=== PATIENT | male | born 1980 | race Caucasian/White ===

== ENCOUNTER 2023-11-06 22:07 | Day surgery (SDC) | payer OTHER, SELFPAY ==
[2023-11-06] VITALS (7 sets, daily range): BP systolic 112–155; BP diastolic 75–106; BMI 47.5; BMI 47.0
[2023-11-06 17:19] LABS: % Basophils 0.6 % (0-2); % Eosinophils 2.3 % (0-6); % Immature Granulocytes 0.3 % (0-0.5); % Lymphocytes 21.7 % (20.5-51.1); % Monocytes 6.6 % (1.7-9.3); % Neutrophils 68.5 % (42.2-75.2); Absolute Basophils 0.1 10^3/uL (0-0.2); Absolute Eosinophils 0.2 10^3/uL (0-0.7); Absolute Lymphocytes 1.9 10^3/uL (1.2-3.4); Absolute Monocytes 0.6 10^3/uL (0.1-0.6); Absolute Neutrophils 5.9 10^3/uL (1.4-6.5); Hematocrit 50.4 % (39.0-52.0); Hemoglobin 17.7 g/dL (13.0-18.0); Mean Corp Hgb Conc. 35.1 g/dL (33.0-37.0); Mean Corpuscular Hgb 30.6 pg (27.0-31.0); Mean Corpuscular Volume 87.2 fL (80.0-94.0); Mean Platelet Volume 9.6 fL (7.4-10.4); Nucleated Red Blood Cells % 0 % (-); Platelet Count 155 10^3/uL (130-400); Red Blood Cell Count 5.78 10^6/uL (4.70-6.10); White Blood Cell Count 8.7 10^3/uL (4.8-10.8)
[2023-11-06 17:31] LABS: ALT (SGPT) 33 U/L (0-50); AST (SGOT) 26 U/L (17-59); Albumin 4.6 g/dl (3.5-5.0); Alkaline Phosphatase 73 U/L (38-126); Blood Urea Nitrogen 26 mg/dl (9-20); Calcium 10.1 mg/dl (8.4-10.2); Carbon Dioxide 14 mmol/L (22-30); Chloride 113 mmol/L (98-107); Estimated Creatinine Clearance 94 ml/min; Glucose 103 mg/dl (70-99); Potassium 4.5 mmol/L (3.5-5.1); Sodium 139 mmol/L (135-145); Total Bilirubin 0.9 mg/dl (0.2-1.3); Total Protein 7.5 g/dl (6.3-8.2); eGFR 54.83
[2023-11-06 17:40] LABS: Troponin I < 0.012 ng/ml
--- NOTE | 2023-11-06 18:00 | EDRN ---
no change in chief complaint. seated with spouse in waiting arena.
--- NOTE | 2023-11-06 18:31 | ED.GENMED ---
History of Present Illness
General
Chief Complaint: Chest Pain
Time Seen by Provider: 11/06/23 18:31
History of Present Illness
History of Present Illness:
HPI: The patient presents with chest pain that started around 3:30 PM. This is described as a pressure. When he was 39 years old he had a stroke and later that month had a heart attack and has stents in the LAD according to the mother. 2 years
ago he had a cerebral aneurysm managed operatively. Nitroglycerin today which made his pain go from an 8 to a 3 out of 10. He has been under a lot of stress recently over the last couple of weeks related to the of his father. He is known to
Dr. Todd. He is pretty certain he had an unremarkable stress test a few months ago.
EXAM:
GENERAL: Well appearing in no distress
HEENT: Moist oral mucosa
CARDIOVASCULAR: No murmurs, normal heart rate, regular rhythm, No chest wall tenderness
PULMONARY: No respiratory distress, breath sounds are clear and equal
ABDOMEN: Soft with no peritoneal signs, no tenderness
NEUROLOGIC: Excellent strength all extremities, no coordination deficits
PSYCHIATRIC: Appropriate mental status, normal insight and judgement
EXTREMITIES: Nontender, no edema, moves all extremities equally
SKIN: No rash, no lesions
TIME OF INITIAL ENCOUNTER: 7 PM
NUMBER AND COMPLEXITY OF PROBLEMS ADDRESSED AT THE ENCOUNTER
� Chronic conditions affecting care: CAD, high blood pressure, hyperlipidemia, cerebral aneurysm, CKD
� Acute Exacerbation and/or Progression of Chronic Illness: This is an acute problem
� Differential Diagnosis includes: ACS, noncardiac chest pain such as anxiety, musculoskeletal chest wall pain/costochondritis pneumonia unlikely
AMOUNT AND/OR COMPLEXITY OF DATA TO BE REVIEWED AND ANALYZED
� I performed an independent evaluation of and my interpretation is:
EKG: Sinus 75, normal axis, nonspecific ST abnormality, no significant change from 03/11/2023
CT:
X-rays: I personally viewed chest x-ray and see no acute abnormality
Laboratory Studies: CBC normal, BUN 26, creatinine 1.6 (was 2.0 in February 2023), bicarb 14, troponin less than 0.012, repeat troponin 0.013
Other:
� Review of other/old records: On 03/21/2023 the patient had a nuclear stress test that showed no evidence of ischemia
� Clinical information was obtained by an independent historian: I spoke to mother at bedside
� Prescriptions/Medications Considered but not given:
� Further testing considered but not performed:
RISK OF COMPLICATIONS AND/OR MORBIDITY OR MORTALITY OF PATIENT MANAGEMENT
� Social determinants of health affecting care: Lives at home
� Discussion with other providers: Discussed case with Dr. Foster who recommends patient would benefit from cath. Hospitalist, Dr. Rojas for admission at 8:47 PM
� Escalation of care including admission/observation vs risk of discharge considered: The patient did have chest discomfort in the setting of known coronary artery disease. Cardiology prefers patient to stay in the hospital
medicine service and they will see in consultation. The patient did have aspirin earlier in the day. He currently appears very comfortable.
Phy Exam
Physical Exam
Physical Exam:
See HPI
Scores
Heart Score for Chest Pain Patients
STEMI patient?: Not applicable
Course
Orders/Labs/Results
Orders:
Orders
11/06/23 16:48
Electrocardiogram (*1) Urgent
Reason for Study: Chest Pain
EKG- Treatment ONCE
11/06/23 16:49
CXR2 [CR Chest - 2 Views ] Urgent
Comment:
Reason For Exam: chest pain
11/06/23 17:04
Complete Blood Count/With Diff Urgent
Comprehensive Metabolic Panel Urgent
Troponin I Urgent
11/06/23 18:35
0.9% Sodium Chloride 1000 ml [Nss] 1,000 ml IV BOLUS
11/06/23 19:07
Nitroglycerin Sublingual [Nitrostat (Sublingual)] 0.4 mg SL NOW STA
11/06/23 19:51
Troponin I Urgent
11/06/23 19:58
Electrocardiogram (*1) Urgent
Reason for Study: Chest Pain
EKG- Treatment ONCE
Abnormal Lab Results
11/06/23
17:04
Chloride 113 H mmol/L
(98-107)
Carbon Dioxide 14 L* mmol/L
(22-30)
BUN 26 H mg/dl
(9-20)
Creatinine 1.6 H mg/dL
(0.7-1.3)
Glucose 103 H mg/dl
(70-99)
11/06/23 17:04
11/06/23 17:04
Vital Signs
Initial and Last Documented VS:
Initial Vital Signs
Temp Pulse Resp BP Pulse Ox
98 F 91 16 155/106 99
11/06/23 16:51 11/06/23 16:51 11/06/23 16:51 11/06/23 16:51 11/06/23 16:51
Last Documented Vital Signs
Temp Pulse Resp BP Pulse Ox
98 F 70 24 112/77 95
11/06/23 16:51 11/06/23 20:00 11/06/23 20:00 11/06/23 20:00 11/06/23 20:00
*Critical Care Note
Total Time (30-74mins, 75-104mins- exclusive of procedures): Not Applicable
ED Attending Note
-
Portions of this chart may have been created with voice recognition software.� Occasional wrong word or��sound alike� substitutions may have occurred due to the inherent limitations of voice recognition software.
Discharge Plan
Departure
Patient Disposition: Admit
Date of Disposition: 11/06/23
Time of Disposition: 20:47
Presentation/result/management discussed w/ accepting MD/DO: Hospitalist
Discharge Problem:
Chest pain
Referrals:
James Teran Jr., MD [Family Provider] -
Interventions
Interventions:
*Risk Screen - Suicide Last Done: 11/06/23 16:51
*Neglect/Abuse Screening Last Done: 11/06/23 16:51
ED- Fall Risk Assessment Last Done: 11/06/23 16:51
ED- Cardiac Assessment Last Done: 11/06/23 19:31
Discharge Date and Time
Print Language: TELUGU
[2023-11-06] MEDS: NSS 1000 IV (19:22)
[2023-11-06] MEDS: NITROSTAT (SUBLINGUAL) 0.4 MG SL (19:28)
[2023-11-06 20:22] LABS: Troponin I 0.013 ng/ml
--- NOTE | 2023-11-06 21:19 | HPS.HSE ---
Family Physician
-
Family Physician: James Teran MD
Chief Complaint
-
Chest pain
History of Present Illness
This is a 43-year-old with past medical history significant for CAD status post MN and multiple stent placements about 4 years ago, obesity, hypertension, hyperlipidemia and prediabetes presenting to the emergency department for episode of
substernal chest pain that started earlier today lasting a few minutes and improved with medical history.
Patient reported being in usual state of health upon arousal. In the setting of not doing any particular physical activity that he started noticing substernal chest pressure. He was not aware of any radiation. It was pain was about a 8 out of 10.
There was mild nausea and some shortness of breath. Took a dose of nitroglycerin which brought down the pain to 130. He then came to the emergency department. Patient reported this pain felt similar to the episode when he had his MN previously.
He also had episode of chest pain in February for which she was evaluated with a stress test that was negative. He has not had any significant cardiac symptoms since then. He reports compliance with his medication. He does take aspirin daily. He
is no longer on Plavix. He otherwise denies any other symptoms. Family reports recent stress in the setting of grief and loss of.
10.
In the ED the patient was hemodynamically stable with normal blood pressure heart rate and pulse. Oxygen saturation was normal on room air. ECG showed a normal sinus rhythm without any acute ST or T wave changes. Normal for R wave progression.
Troponin was 0.012 in the first test and 0.013 on the second test. Chest x-ray was clear. ED discussed the case with cardiology who recommended a possible cath in the a.m.
Medical History
Past Medical History
Past Medical History: Reports CAD, HTN and Hypercholesterolemia
Past Surgical History: Reports None
Social History
Tobacco: Former Smoker
Alcohol: None
Drug: None
Living: With Family
Employment: Employed
Family History
Family History: Early CAD
Allergies / Home Medications
Allergies reflects when Allergies were last updated in [facility].
Home Medications with original date entered in [facility]
Allergy/Medication List:
Allergies
Allergy/AdvReac Type Severity Reaction Status Date / Time
No Known Allergies Allergy Verified 11/06/23 16:49
Home Medications
ascorbic acid (vitamin C) 500 mg tablet (Vitamin C) 500 mg PO DAILY 11/06/23
aspirin 81 mg tablet,delayed release 81 mg PO DAILY 11/06/23
atorvastatin 40 mg tablet 40 mg PO HS 11/06/23
buspirone 5 mg tablet 5 mg PO BID 11/06/23
empagliflozin 10 mg tablet (Jardiance) 10 mg PO DAILY 11/06/23
folic acid 1 mg tablet 1 mg PO DAILY 11/06/23
lisinopril 20 mg tablet 20 mg PO DAILY 11/06/23
magnesium 250 mg tablet 250 mg PO HS 11/06/23
metoprolol succinate 100 mg tablet,extended release 24 hr 100 mg PO BID 11/06/23
sodium bicarbonate 650 mg tablet 1,300 mg PO BID 11/06/23
therapeutic multivitamin 1 tab PO HS 11/06/23
topiramate 50 mg tablet 50 mg PO BID 11/06/23
zinc sulfate 50 mg zinc (220 mg) tablet 50 mg PO DAILY 11/06/23
Review of Systems
-
History Source: Patient
Constitutional: Reports No Symptoms
EENT: Reports No Symptoms
Respiratory: Reports No Symptoms
Cardiac: Reports Chest Pain
Abdomen/GI: Reports No Symptoms
: Reports No Symptoms
Musculoskeletal: Reports No Symptoms
Skin: Reports No Symptoms
Neurological: Reports No Symptoms
Endocrine: Reports No Symptoms
Hematologic/Lymphatic: Reports No Symptoms
Psych: Reports No Symptoms
Physical Exam
Vital Signs
Vital Signs
Temp Pulse Resp BP Pulse Ox
98 F 65 22 119/88 97
11/06/23 16:51 11/06/23 21:00 11/06/23 21:00 11/06/23 21:00 11/06/23 21:00
Physical Exam
General: Well Developed, Well Nourished and No Apparent Distress
HEENT: NormoCephalic, Anicteric, Moist mucous membranes and PERRLA
Respiratory: Clear
Cardiac: S1/S2 and Regular Rhythm
Breast: Deferred by me
GI: Soft, Non Tender and Non Distended
Rectal: Deferred by Provider
Genito-urinary: Deferred by me
Musculoskeletal: No Clubbing, No Cyanosis and No Edema
Skin: Warm
Neuro: AO x 3
Psych: Calm
Laboratory Results
-
11/06/23 17:04
11/06/23 17:04
Laboratory Results
Total Bilirubin 0.9 mg/dl (0.2-1.3) 11/06/23 17:04
AST 26 U/L (17-59) 11/06/23 17:04
ALT 33 U/L (0-50) 11/06/23 17:04
Alkaline Phosphatase 73 U/L (38-126) 11/06/23 17:04
Troponin I 0.013 ng/ml 11/06/23 19:51
Data Reviewed
-
Diagnostic Radiology: Image Personally Visualized and interpreted
Medical Tests (Nuc Med, Echo, EKG etc): Image Personally Visualized and interpreted
Lab Data: Labs Reviewed by me
Old Records: Reviewed
Impression/Plan
-
IMPRESSION:
43 y.o with known CAD presenting with typical substernal chest pain improved with nitroglycerin. Currently chest pain free. Trop 0.012 - > 0.013. ECG without acute ischemic changes. Concerning for ACS.
PLAN:
1. ACS - High risk factors and typical symptoms. Currently chest pain free. Trop was 0.012.
- admit to telemetry
- cycle cardiac enzymes
- prn nitroglycerin for now
- aspirin 324 x 1, then continue aspirin, statin and beta blockade.
- continue Jardiance
- echo in am
- npo in am
- cardiology consulted
2. HTN - stable.
- continue lisinopril
3. Acidosis - Bicarb 16 last year. Known metabolic acidosis and has been on sodium bicarb supplementation per outpatinet nephrology. Potassium WNL.
- base deficit = 630
- continue sodium bicarb with bicitra pchs
- f/u with outpatient nephrology.
DVT PPX with lovenox sq
Full Code
[2023-11-06] MEDS: LOW STRENGTH ASPIRIN 324 MG PO (21:53)
--- NOTE | 2023-11-06 22:51 | PTCARENOTE ---
Pt admitted to 2251- ambulates as a self. admission and assessment completed. POC discussed pt and mother verbalized understanding. 3/10 cp complaints at this time- pt states this is stable. pt mentions that his father recently passed- causing him
increased stress. SR with 1st degree on the monitor. NPO for possible cath tomorrow.
[2023-11-06] MEDS: BICITRA 30 ML PO (23:01)
[2023-11-06] MEDS: LIPITOR 40 MG PO (23:02)
[2023-11-06 23:10] LABS: Troponin I 0.015 ng/ml
[2023-11-07] VITALS (20 sets, daily range): BP systolic 95–129; BP diastolic 52–89
[2023-11-07 04:48] LABS: Hematocrit 46.2 % (39.0-52.0); Hemoglobin 16.2 g/dL (13.0-18.0); Mean Corp Hgb Conc. 35.1 g/dL (33.0-37.0); Mean Corpuscular Volume 85.6 fL (80.0-94.0); Mean Platelet Volume 10.1 fL (7.4-10.4); Platelet Count 148 10^3/uL (130-400); Red Cell Dist. Width 14.2 % (11.5-14.5); White Blood Cell Count 8.7 10^3/uL (4.8-10.8)
[2023-11-07 05:11] LABS: Blood Urea Nitrogen 27 mg/dl (9-20); Calcium 9.4 mg/dl (8.4-10.2); Carbon Dioxide 17 mmol/L (22-30); Chloride 114 mmol/L (98-107); Estimated Creatinine Clearance 88 ml/min; Glucose 95 mg/dl (70-99); Potassium 4.2 mmol/L (3.5-5.1); Sodium 140 mmol/L (135-145); eGFR 50.98
[2023-11-07 05:21] LABS: Troponin I 0.019 ng/ml
[2023-11-07] MEDS: TOPAMAX 50 MG PO ×2 (08:08→20:28)
[2023-11-07] MEDS: SODIUM BICARBONATE 1300 MG PO ×2 (08:08→20:28)
[2023-11-07] MEDS: ASPIR LOW (ENTERIC COATED) 81 MG PO (08:09)
[2023-11-07] MEDS: BUSPAR 5 MG PO ×2 (08:09→20:28)
[2023-11-07] MEDS: ZINC SULFATE 220 MG PO (08:09)
[2023-11-07] MEDS: VITAMIN C 500 MG PO (08:10)
[2023-11-07] MEDS: TOPROL XL 100 MG PO ×2 (08:10→20:28)
[2023-11-07] MEDS: JARDIANCE 10 MG PO (08:10)
[2023-11-07] MEDS: FOLVITE 1 MG PO (08:11)
--- NOTE | 2023-11-07 08:26 | CON.CAR ---
Addendum entered and electronically signed by Doreen Lozano MD 11/07/23 10:32:
I saw and examined the patient.
The Wood Borer's note was reviewed and I agree with the note.
Comment: Neftaly is a 43-year-old morbidly obese gentleman with past medical history of hypertension, hyperlipidemia, chronic kidney disease St 3A (baseline creat 1.7 in 2020) obstructive sleep apnea, CVA status post tPA at [facility]
in April 2020, NSTEMI and coronary artery disease with 100% mid LAD occlusion and 20 to 30% RPDA lesion status post 3 drug-eluting stents at [facility] in May 2020, complicated by ischemic cardiomyopathy with LVEF down to
28%, since then recovered, history of brain aneurysm status postcraniotomy and clipping at [place] in June 2021 who presents this admission with recurrent episodes of chest discomfort, exertional in nature concerning for possible unstable angina.
He was last seen in cardiology office in February 2023 for chest pain at which point his troponin was 0.02 and he underwent a nuclear stress test which showed normal perfusion. His peak troponin so far has been 0.019 which is in the normal range
for troponin I.
Vital signs and lab work reviewed. On exam patient has a flat affect, is morbidly obese, ANO x 3, normal S1 and S2, regular rate, clear to auscultation bilaterally, abdomen is soft, nontender, nondistended with active bowel sounds, warm extremities
without significant edema.
ECG with sinus rhythm and without acute ischemic changes.
Recommendations:
1. Continue medical management for now for presumed acute coronary syndrome and concern for unstable angina. We will trial sublingual nitroglycerin additionally to get patient chest pain-free. Daily baby aspirin, high intensity statin and
beta-claudia as tolerated.
2. We discussed the options of repeating a stress test versus pursuing invasive coronary angiogram. Given ongoing chest discomfort with stress test which was showing normal perfusion in February,, her decision was to move forward with
invasive coronary angiogram to rule out obstructive CAD causing his symptoms.
3. We will obtain a full echocardiogram to assess biventricular function.
4. Further recommendations based on findings of the heart catheterization.
Doreen Lozano MD, [facility], [facility]
Original Note:
Consultation
Consultation Request
Date/Time Consultation Requested: 11/06/23 at 2213
Date/Time Consultation Performed: 11/07/23 at 0737
Requesting Provider: Dr. Givens
Performing Provider: Dr. Laws
Reason for Consultation: Chest pain
Medical History
-
History of Present Illness:
Patient came to [facility] yesterday with chest pain and cardiology has been consulted. Patient has a history of stroke treated with tPA at [facility] 04/2020. About a month later he had an abnormal stress test and then very quickly afterwards was admitted with
an NSTEMI to [facility] and had cardiac catheterization that revealed a 100% mid LAD lesion that was stented with a drug-coated stent. He had residual 20 to 30% PDA lesion at that time. About a year later he was treated at [place] for evidence of
brain aneurysm and had craniotomy with clipping at that time. Since then he has been following locally with neurology at [place] and also transition his care from Dr. Larose at [facility] to Dr. Hess. He was last seen in the cardiology office
03/12/2023 for chest pain. He had been in the ER the night before for the same symptoms and after normal troponin of 0.02 he was discharged home. In the office his EKG showed poor R wave progression and he was recommended a Lexiscan nuclear stress
test as noted above. Since then he has not had any chest pain. He reports that yesterday he was walking 1 block to retrieve his mail and about group home through his journey he started with a crushing substernal chest pain for which she doubled over
in pain. The pain altogether lasted a couple of minutes and then resolved from an 8 out of 10 intensity down to a 4 out of 10 intensity and he was able to finish his journey to get his mail and then walks 1 block back: Without any worsening of
pain. When he got home he took a nitro and his pain reduced to a 2 out of 10. He talked to his mother who then brought him to ER. While in ER he had recurrence of chest pain at rest up to a level of 8 out of 10 there was treated with nitro
sublingual x 1 reducing his pain to a 2 out of 10. He is lingered with a 2 out of 10 pain overnight. Despite this his troponins have all been in the normal range.
PMH:
CAD
s/p NSTEMI and cath with 100% mid LAD stenosis and 20-30% PDA lesion, s/p NAMRATA to LAD at [facility] 06/09/20
h/o CVA s/p tPA at [facility] 04/2020
h/o brain aneurysm, craniotomy and clipping at [place] 06/2021
HTN
Hyperlipidemia
LADARIUS
Improved ICM EF 28% by echo at [facility] 05/2020, improved to 61% by echo 08/24/20
Past Medical History
Past Medical History: Other (in HPI)
Past Surgical History: Other (brain aneurysm s/p clipping at [facility] 06/2021, 06/2021)
Social History
Tobacco: Former Smoker
Alcohol: None
Drug: None
Personal: Single
Living: With Family (he is the primary caregiver for his bedbound father )
Family History
Family History: CAD and Diabetes
Allergies / Home Medications
Allergy/AdvReac Type Severity Reaction Status Date / Time
No Known Allergies Allergy Verified 11/06/23 16:49
�Medication �Instructions �Recorded �Confirmed �Type
ascorbic acid (vitamin C) 500 mg 500 mg PO DAILY 11/06/23 11/06/23 History
tablet (Vitamin C)
aspirin 81 mg tablet,delayed 81 mg PO DAILY 11/06/23 11/06/23 History
release
atorvastatin 40 mg tablet 40 mg PO HS 11/06/23 11/06/23 History
buspirone 5 mg tablet 5 mg PO BID 11/06/23 11/06/23 History
empagliflozin 10 mg tablet 10 mg PO DAILY 11/06/23 11/06/23 History
(Jardiance)
folic acid 1 mg tablet 1 mg PO DAILY 11/06/23 11/06/23 History
lisinopril 20 mg tablet 20 mg PO DAILY 11/06/23 11/06/23 History
magnesium 250 mg tablet 250 mg PO HS 11/06/23 11/06/23 History
metoprolol succinate 100 mg 100 mg PO BID 11/06/23 11/06/23 History
tablet,extended release 24 hr
sodium bicarbonate 650 mg tablet 1,300 mg PO BID 11/06/23 11/06/23 History
therapeutic multivitamin 1 tab PO HS 11/06/23 11/06/23 History
topiramate 50 mg tablet 50 mg PO BID 11/06/23 11/06/23 History
zinc sulfate 50 mg zinc (220 mg) 50 mg PO DAILY 11/06/23 11/06/23 History
tablet
Review of Systems
-
History Source: Patient
All other systems: Negative unless noted
Physical Exam
Vital Signs
Temp Pulse Resp BP Pulse Ox
97.5 F 70 20 104/71 94
11/07/23 08:06 11/07/23 08:10 11/07/23 08:06 11/07/23 08:10 11/07/23 08:02
GEN: NAD. AAOx3
HEENT: EOMI, MMM
CV: Reg, no murmur
ABD: soft, BS+, NT, ND
EXT: No clubbing, cyanosis, lesions or edema B/L
NEURO: Gross non-focal
SKIN: Warm, dry and pink. No rash
Lab Results
11/07/23 04:01
11/07/23 04:01
Troponin I 0.019 ng/ml D 11/07/23 04:01
Impression / Plan
-
PCP: Dr. James Teran
Cardiology: Dr. Todd
Neurology: Dr. Mathews
Impression:
Chest pain
CAD
s/p NSTEMI and cath with 100% mid LAD stenosis and 20-30% PDA lesion, s/p NAMRATA to LAD at [facility] 06/09/20
h/o CVA s/p tPA at [facility] 04/2020
h/o brain aneurysm, craniotomy and clipping at [place] 06/2021
HTN
Hyperlipidemia
LADARIUS
Improved ICM EF 28% by echo at [facility] 05/2020, improved to 61% by echo 08/24/20
Pharmacologic nuclear stress test 06/07/2020: [facility] study, EF 20%, large reversible defect during stress mid anterior, mid anteroseptal, apical anterior, apical septal and apex
Exercise nuclear stress test 03/21/2023: Completed 7 minutes, 8 METS Jair protocol, 86% MPHR, normal perfusion imaging
Echo 05/04/2020: EF 45%
Echo 08/24/2020: EF 61%, moderate concentric LVH, no obvious evidence of interatrial shunt
Plan:
-Patient came to [facility] yesterday with chest pain and cardiology has been consulted. Patient has a history of stroke treated with tPA at [facility] 04/2020. About a month later he had an abnormal stress test and then very quickly afterwards was admitted
with an NSTEMI to [facility] and had cardiac catheterization that revealed a 100% mid LAD lesion that was stented with a drug-coated stent. He had residual 20 to 30% PDA lesion at that time. About a year later he was treated at [place] for evidence of
brain aneurysm and had craniotomy with clipping at that time. Since then he has been following locally with neurology at [place] and also transition his care from Dr. Larose at [facility] to Dr. Hess. He was last seen in the cardiology office
03/12/2023 for chest pain. He had been in the ER the night before for the same symptoms and after normal troponin of 0.02 he was discharged home. In the office his EKG showed poor R wave progression and he was recommended a Lexiscan nuclear stress
test as noted above. Since then he has not had any chest pain. He reports that yesterday he was walking 1 block to retrieve his mail and about group home through his journey he started with a crushing substernal chest pain for which she doubled over
in pain. The pain altogether lasted a couple of minutes and then resolved from an 8 out of 10 intensity down to a 4 out of 10 intensity and he was able to finish his journey to get his mail and then walks 1 block back: Without any worsening of
pain. When he got home he took a nitro and his pain reduced to a 2 out of 10. He talked to his mother who then brought him to ER. While in ER he had recurrence of chest pain at rest up to a level of 8 out of 10 there was treated with nitro
sublingual x 1 reducing his pain to a 2 out of 10. He is lingered with a 2 out of 10 pain overnight. Despite this his troponins have all been in the normal range.
-ECG reviewed by me with SR and no acute St changes. Troponin serially normal.
-Patient completed a stress test as noted above 02/2023 and there was no ischemia, but he has a h/o CAD with NSTEMI and LAD PCI in 2020. Talked with patient about possibility of cardiac cath. Reviewed risks associated with cardiac cath including
risk of heart attack stroke or but also the risk of contrast-induced nephropathy. His creatinine today is 1.7, it was up to 2.0 when he was in the ER 02/2023. He does not follow with a change director.
-For now with his ongoing chest pain we will give another nitroglycerin sublingual x 1 and follow for resolution of pain. If pain does not improve can consider adding Nitropaste or nitroglycerin drip.
-Patient reports 2 out of 10 chest pain through the night. He was not started on a heparin drip. Troponin levels were normal throughout the night. Will start heparin drip now. Case reviewed with neurology there and there are no contraindications
to heparin drip or DAPT.
-Check echo
-Check CV and continue outpatient dose of atorvastatin 40 mg daily for now
-Patient was noted to be hypertensive on admission, but this morning BP is 108/70.
-Continue outpatient dose of Toprol-XL 100 mg twice daily
-Continue outpatient dose of lisinopril 20 mg daily
-He has an improved ischemic cardiomyopathy. EF previously as low as 20% by nuclear stress test in 2020, but was only ever as low as 45% by echo in 2020. Last known echo 08/24/2020 his EF was 61%.
-Continue outpatient dose of Jardiance 10 mg daily
[2023-11-07] MEDS: NITROSTAT (SUBLINGUAL) 0.4 MG SL ×2 (09:19→09:38)
--- NOTE | 2023-11-07 09:25 | W.PN.UPDATE ---
Update Note
Progress Note Update
Called Dr. Larose's office at [facility] to request cath report from 06/09/20 and they are looking in their records and will fax VALERIA.
--- NOTE | 2023-11-07 09:49 | PTCARENOTE ---
Pt c/o left ACW 'pressure/ tightness'. Pt rated this discomfort as 3 out of 10 on pain scale. Pt states that this discomfort is unchanged since his admission to the hospital. aware. Nitroglycerin sl x2 given. Pt's chest pain is now 1 out of
10. Pt refusing the 3rd ntg, due to a worsening headache. Pt also refusing tylenol as headaches are chronic. aware. Will monitor.
[2023-11-07 09:53] LABS: HDL Cholesterol 33 mg/dl; LDL Cholesterol, Calculated 87 mg/dl; Total Cholesterol 161 mg/dl (50-199); Triglyceride 208 mg/dl (10-149); Very Low Density Lipoprotein 41 mg/dl (0-30)
--- NOTE | 2023-11-07 10:02 | CM ---
Reviewed chart. Met with Mr. Pelayo to review discharge plans. He states prior to admission he resides alone in a tow story home with one step to enter. He states he has a full flight of steps to get to bedroom/full bathroom. He states he has a
powder room on the first floor. He states prior to admission he was independent with ambulation and adls. He states he does not have any DME in the home. He states he has a prescription plan and uses [facility]. The discharge plan is to
return home when medically stable.
[2023-11-07 10:18] LABS: Glycohemoglobin (HgbA1c) 5.6 % (4.0-5.6)
[2023-11-07] MEDS: BICITRA PO ×2 (10:25→15:58)
[2023-11-07] MEDS: ZESTRIL PO (10:25)
[2023-11-07] MEDS: FLUSH (NSS) 1 FLUSH IV (10:30)
--- NOTE | 2023-11-07 10:32 | ITS.CL.CATH ---
Portal Administrator - Catheterization
Cardiac Catheterization
Procedure Report:
LEFT HEART CATHETERIZATION
Date of Procedure: November 07, 2023
Referring: Doreen Lozano MD, [facility], [facility]
PROCEDURES:
1. Left heart catheterization, coronary angiogram.
2. Ultrasound-guided access
INDICATION: Neftaly is a 43-year-old morbidly obese gentleman with past medical history of hypertension, hyperlipidemia, chronic kidney disease St 3A (baseline creat 1.7 in 2020) obstructive sleep apnea, CVA status post tPA at [facility] in April 2020, NSTEMI and coronary artery disease with 100% mid LAD occlusion and 20 to 30% RPDA lesion status post 3 drug-eluting stents at [facility] in May 2020, complicated by ischemic cardiomyopathy with LVEF down
to 28%, since then recovered, history of brain aneurysm status post-craniotomy and clipping at [place] in June 2021 who presents this admission with recurrent episodes of chest discomfort, exertional in nature concerning for possible unstable
angina. He was last seen in cardiology office in February 2023 for chest pain at which point his troponin was 0.02 and he underwent a nuclear stress test which showed normal perfusion. His peak troponin so far has been 0.019 which is in the normal
range for troponin I.
ACCESS: Right radial artery, 6 Romanian sheath, under ultrasound guidance.
HEMODYNAMICS : (mmHg)
AO (s/d) : 124/92
LV (s/d) : 114/7
LVEDP : 14
CORONARY FINDINGS
DOMINANCE: Right
LEFT MAIN: The left main artery is a large-caliber vessel gives rise to the left anterior descending artery and the left circumflex artery. There is minimal luminal irregularities.
LEFT ANTERIOR DESCENDING: The left anterior descending artery is a medium to large caliber vessel which gives rise to 1 major diagonal branch as it courses to the anterior interventricular groove towards the apex. Previously placed LAD stents are
widely patent. Apical LAD is very small in caliber and has mildly sluggish flow however otherwise there are no obstructive stenoses with JOSE-3 flow elsewhere.
CIRCUMFLEX: The left circumflex artery is a medium caliber vessel which gives rise to 1 small obtuse marginal branch and a second large caliber OM 2. There is minimal luminal irregularities.
RIGHT CORONARY ARTERY: The right coronary artery is a large-caliber, dominant vessel which gives rise to the right posterior descending artery and the right posterolateral system. There is mild degree of tortuosity. RPDA has an eccentric 30%
stenosis in the proximal portion.
SEDATION: 35 minutes of procedural sedation was utilized. An independent medical engineer was present to assist with and help manage the patient's level of consciousness and physiologic status.
RADIATION SUMMARY: Fluoro Time (min): 1.7, Dose (mGy): 411.97, DAP (Gy.cm2) : 26.94
Closure Device: Vascular band over right radial artery, 11 cc of air.
CONCLUSIONS
1. No obvious obstructive stenoses to explain his ongoing symptoms. Prior LAD stents are widely patent.
2. Apical LAD which is very small in caliber has mildly sluggish flow.
3. High normal LVEDP at 14 mmHg.
RECOMMENDATIONS
1. Continued optimization of goal-directed medical therapy for underlying coronary artery disease and aggressive management of cardiovascular risk factors.
2. Full echocardiogram to assess biventricular function and rule out any significant valvular abnormalities.
3. Wean radial band per protocol.
Doreen Lozano MD, FACC, [facility]
--- NOTE | 2023-11-07 11:56 | CARDSERVLU ---
Echocardiogram with [facility]ason completed after protocol screening completed. Allergies verified.
Patent IV site: _Right wrist site clear____
IV site flushed with 0.9% NaCl pre and post administration.
Diluted bolus method utilized to enhance visualization of ventricular jones.
Total volume given: __3__ mL
Patient tolerated all procedures well without complications.
--- NOTE | 2023-11-07 14:23 | W.PN.HOSP.TC ---
Today's Communication/Plan
-
Will discharge tomorrow
Assessment / Plan
Assessment / Plan
1. ACS - High risk factors and typical symptoms. Currently chest pain free. Trop was 0.012.
- admit to telemetry
- cycle cardiac enzymes
- prn nitroglycerin for now
- aspirin 324 x 1, then continue aspirin, statin and beta blockade.
- continue Jardiance
- echo in am
- npo in am
- cardiology consulted
11/06
Cardiac cath done came back shows:
1. No obvious obstructive stenoses to explain his ongoing symptoms. Prior LAD stents are widely patent.
2. Apical LAD which is very small in caliber has mildly sluggish flow.
3. High normal LVEDP at 14 mmHg.
Cardiology recommending to continue medical management.
And obtain full echocardiogram
2. HTN - stable.
- continue lisinopril
3. Acidosis -
CO2 improved to 17
Continue to monitor
- continue sodium bicarb with bicitra pchs
- f/u with outpatient nephrology.
DVT PPX with lovenox sq
Full Code
Anticipated Discharge: Within 24 hours
Subjective/Interval History
-
Date of Service: November 07, 2023
Patient seen and examined at bedside, patient was having headache after nitroglycerin but improved, patient with history of chronic headaches, also was having mild chest pain at the epigastric area, currently improved.
Patient was seen before cardiac cath.
Denies shortness of breath, no abdominal pain, no nausea, no vomiting, no diarrhea or constipation.
Eventually cardiac cath came back shows patent coronary artery and patent stent.
Objective Data
-
Labs:
Laboratory Results
11/07/23 11/07/23
04:01 08:25
WBC 8.7
Hgb 16.2
Hct 46.2
Plt Count 148
APTT Cancelled
Sodium 140
Potassium 4.2
Chloride 114 H
Carbon Dioxide 17 L
BUN 27 H
Creatinine 1.7 H
Glucose 95
Calcium 9.4
Vital Signs:
Vital Signs
Temp Pulse Resp BP Pulse Ox
98.4 F 69 18 111/84 95
11/07/23 13:47 11/07/23 12:29 11/07/23 13:47 11/07/23 12:29 11/07/23 13:47
Physical Exam
-
General: Well Developed and No Apparent Distress
HEENT: Normocephalic, Atraumatic and Moist Mucous Membranes
Respiratory: Clear to Auscultation
Cardiac: Regular Rhythm and S1/S2; Negative Murmur, Rub or Gallop
GI: Soft, Nontender, Nondistended and Normal Bowel Sounds; Negative Organomegaly
Rectal: Deferred by Provider
Musculoskeletal: No Clubbing, No Cyanosis and No Edema
Skin: Negative Rash
Neuro: Nonfocal/Grossly Intact
[2023-11-07] MEDS: NSS 1000 IV (14:46)
[2023-11-07] MEDS: BICITRA 30 ML PO ×2 (18:03→22:35)
[2023-11-07] MEDS: LIPITOR 80 MG PO (22:35)
--- NOTE | 2023-11-08 00:36 | PTCARENOTE ---
received patient at the change of shift. AAOx3. resting in the bed comfortably. denies any cp/sob. HR SR 70s. bp stable. R radial site CDI. + pulses. educated patient to inform RN with any changes. independent in the room. call spencer within reach.
[2023-11-08 03:36] VITALS: BP 125/86
[2023-11-08 06:07] LABS: Blood Urea Nitrogen 28 mg/dl (9-20); Calcium 9.5 mg/dl (8.4-10.2); Carbon Dioxide 18 mmol/L (22-30); Chloride 112 mmol/L (98-107); Estimated Creatinine Clearance 88 ml/min; Glucose 98 mg/dl (70-99); Potassium 4.3 mmol/L (3.5-5.1); Sodium 140 mmol/L (135-145); eGFR 50.98
[2023-11-08 06:14] LABS: Hematocrit 46.5 % (39.0-52.0); Hemoglobin 16.2 g/dL (13.0-18.0); Mean Corp Hgb Conc. 34.8 g/dL (33.0-37.0); Mean Corpuscular Hgb 30.1 pg (27.0-31.0); Mean Corpuscular Volume 86.4 fL (80.0-94.0); Mean Platelet Volume 9.7 fL (7.4-10.4); Platelet Count 148 10^3/uL (130-400); Red Blood Cell Count 5.38 10^6/uL (4.70-6.10); Red Cell Dist. Width 14.2 % (11.5-14.5); White Blood Cell Count 8.4 10^3/uL (4.8-10.8)
[2023-11-08 07:48] VITALS: BP 106/72
--- NOTE | 2023-11-08 08:23 | W.PN.CARDCBS ---
Addendum entered and electronically signed by Aislinn Green DO 11/08/23 12:34:
I saw and examined the patient.
The Attendance Officer's note was reviewed and I agree with the note.
Comment: Seen and examined. Chart and tele reviewed. Still notes occasional intermittent chest discomfort but not associated with activity or exertion and worse when he leans forward.
GEN: No distress, awake, Ox3, obese
LUNGS: CTA, no wheezes/rales
CV: distant heart tones, Reg, S1/S2, no murmur,
ABD: soft/obese, BS+, NT/ND
EXT: No edema/ Right radial site intact +2 radial
NEURO: Gross non-focal
Plan:
-Presented 11/06/2023 with chest pain, peak trop negative at 0.019
-Cardiac cath 11/07/2023 with no obvious obstructive stenoses to explain his ongoing symptoms. Prior LAD stents are widely patent. Apical LAD which is very small in caliber has mildly sluggish flow.
-Continue optimization of goal-directed medical therapy for underlying coronary artery disease and aggressive management of cardiovascular risk factors. Previously did not tolerate Imdur due to headaches. Add low dose amlodipine 2.5 mg for
vasodilatory effect
-Creat stable post cath 1.7
-Continue ASA
-Echo 11/07/23 with preserved EF
-Lipids 11/07/23: TC 161, hdl 33, LDL 87, Trgs 208. Increase Atorvastatin to 80 mg as goal LDL <70 and ideally closer to 55.
-BP is reasonably controlled. Continue Lisinopril, Toprol
-He has an improved ischemic cardiomyopathy. EF previously as low as 20% by nuclear stress test in 2020, but was only ever as low as 45% by echo in 2020, EF 61% 08/2020. Most recent echo this admission EF 55-60%.
-Continue outpatient dose of Jardiance 10 mg daily
-Outpt cardiology follow up arranged
Original Note:
Today's Communication / Plan
-
Increase Atorvastatin to 80 mg
Continue aggressive medical management
Add amlodipine 2.5 mg
Outpt cardiology follow up arranged
Impression / Plan
-
PCP: Dr. James Teran
Cardiology: Dr. Todd
Neurology: Dr. Mathews
Impression:
Chest pain
CAD
s/p NSTEMI and cath with 100% mid LAD stenosis and 20-30% PDA lesion, s/p NAMRATA to LAD at [facility] 06/09/20
h/o CVA s/p tPA at [facility] 04/2020
h/o brain aneurysm, craniotomy and clipping at [place] 06/2021
HTN
Hyperlipidemia
LADARIUS
Improved ICM EF 28% by echo at [facility] 05/2020, improved to 61% by echo 08/24/20
Pharmacologic nuclear stress test 06/07/2020: [facility] study, EF 20%, large reversible defect during stress mid anterior, mid anteroseptal, apical anterior, apical septal and apex
Exercise nuclear stress test 03/21/2023: Completed 7 minutes, 8 METS Jair protocol, 86% MPHR, normal perfusion imaging
Cardiac cath 11/07/2023: LM: RUMA. LAD:patent LAD NAMRATA. LCX:LI. RCA/RPDA: prox 30%
Echo 11/07/2023:EF 55-60%, mod LVH, PAP 15-20 mmhg
Echo 05/04/2020: EF 45%
Echo 08/24/2020: EF 61%, moderate concentric LVH, no obvious evidence of interatrial shunt
Plan:
-Presented 11/06/2023 with chest pain, peak trop negative at 0.019
-Cardiac cath 11/07/2023 with no obvious obstructive stenoses to explain his ongoing symptoms. Prior LAD stents are widely patent. Apical LAD which is very small in caliber has mildly sluggish flow.
-Continue optimization of goal-directed medical therapy for underlying coronary artery disease and aggressive management of cardiovascular risk factors. Previously did not tolerate Imdur due to headaches. Add low dose amlodipine 2.5 mg for
vasodilatory effect
-Creat stable post cath 1.7
-Continue ASA
-Echo 11/07/23 with preserved EF
-Lipids 11/07/23: TC 161, hdl 33, LDL 87, Trgs 208. Increase Atorvastatin to 80 mg as goal LDL <70 and ideally closer to 55.
-BP is reasonably controlled. Continue Lisinopril, Toprol
-He has an improved ischemic cardiomyopathy. EF previously as low as 20% by nuclear stress test in 2020, but was only ever as low as 45% by echo in 2020, EF 61% 08/2020. Most recent echo this admission EF 55-60%.
-Continue outpatient dose of Jardiance 10 mg daily
-Outpt cardiology follow up arranged
[facility] 11/07/2023 :
Patient came to [facility] yesterday with chest pain and cardiology has been consulted. Patient has a history of stroke treated with tPA at [facility] 04/2020. About a month later he had an abnormal stress test and then very quickly afterwards was admitted with
an NSTEMI to [facility] and had cardiac catheterization that revealed a 100% mid LAD lesion that was stented with a drug-coated stent. He had residual 20 to 30% PDA lesion at that time. About a year later he was treated at [place] for evidence of
brain aneurysm and had craniotomy with clipping at that time. Since then he has been following locally with neurology at [place] and also transition his care from Dr. Larose at [facility] to Dr. Hess. He was last seen in the cardiology office
03/12/2023 for chest pain. He had been in the ER the night before for the same symptoms and after normal troponin of 0.02 he was discharged home. In the office his EKG showed poor R wave progression and he was recommended a Lexiscan nuclear stress
test as noted above. Since then he has not had any chest pain. He reports that yesterday he was walking 1 block to retrieve his mail and about longterm through his journey he started with a crushing substernal chest pain for which she doubled over
in pain. The pain altogether lasted a couple of minutes and then resolved from an 8 out of 10 intensity down to a 4 out of 10 intensity and he was able to finish his journey to get his mail and then walks 1 block back: Without any worsening of
pain. When he got home he took a nitro and his pain reduced to a 2 out of 10. He talked to his mother who then brought him to ER. While in ER he had recurrence of chest pain at rest up to a level of 8 out of 10 there was treated with nitro
sublingual x 1 reducing his pain to a 2 out of 10. He is lingered with a 2 out of 10 pain overnight. Despite this his troponins have all been in the normal range.
-ECG reviewed by me with SR and no acute St changes. Troponin serially normal.
Progress Note - Permit Specialist
Subjective
Date of Service: November 08, 2023
Patient seen and examined. Sitting up in bed. Still notes occasional intermittent chest discomfort but not associated with activity or exertion and worse when he leans forward.
Objective
Labs:
11/08/23 04:21
11/08/23 04:21
Labs
Hgb 16.2 g/dL (13.0-18.0) 11/08/23 04:21
Hct 46.5 % (39.0-52.0) 11/08/23 04:21
Plt Count 148 10^3/uL (130-400) 11/08/23 04:21
APTT Cancelled 11/07/23 08:25
Sodium 140 mmol/L (135-145) 11/08/23 04:21
Potassium 4.3 mmol/L (3.5-5.1) 11/08/23 04:21
BUN 28 mg/dl (9-20) H 11/08/23 04:21
Creatinine 1.7 mg/dL (0.7-1.3) H 11/08/23 04:21
Glucose 98 mg/dl (70-99) 11/08/23 04:21
Troponins
11/06/23 11/06/23 11/06/23
17:04 19:51 22:37
Troponin I < 0.012 0.013 0.015
11/07/23
04:01
Troponin I 0.019 D
Vital Signs and I&O:
Vital Signs
Temp Pulse Resp BP Pulse Ox
97.7 F 63 18 125/86 97
11/08/23 07:46 11/08/23 06:00 11/08/23 07:46 11/08/23 03:36 11/08/23 07:46
Vital Signs
Temp Pulse Resp BP Pulse Ox
97.7 F 63 18 125/86 97
11/08/23 07:46 11/08/23 06:00 11/08/23 07:46 11/08/23 03:36 11/08/23 07:46
Intake & Output
11/06/23 11/07/23 11/08/23 11/09/23
06:59 06:59 06:59 06:59
Intake Total 550 / 550
Balance 550 / 550
Physical Exam
Physical Exam
GEN: No distress, awake, Ox3, obese
HEENT: supple, anicteric, mmm
LUNGS: CTA, no wheezes/rales
CV: distant heart tones, Reg, S1/S2, no murmur, rub or gallop
ABD: soft/obese, BS+, NT/ND
EXT: No edema, clubbing or cyanosis
NEURO: Gross non-focal
SKIN: No rash, warm, dry
[2023-11-08 08:36] VITALS: BP 119/79
[2023-11-08] MEDS: FOLVITE 1 MG PO (08:42)
[2023-11-08] MEDS: SODIUM BICARBONATE 1300 MG PO (08:42)
[2023-11-08] MEDS: ZINC SULFATE 220 MG PO (08:42)
[2023-11-08] MEDS: JARDIANCE 10 MG PO (08:42)
[2023-11-08] MEDS: TOPAMAX 50 MG PO (08:42)
[2023-11-08] MEDS: ASPIR LOW (ENTERIC COATED) 81 MG PO (08:42)
[2023-11-08] MEDS: BUSPAR 5 MG PO (08:43)
[2023-11-08] MEDS: TOPROL XL 100 MG PO (08:43)
[2023-11-08] MEDS: ZESTRIL 20 MG PO (08:43)
[2023-11-08] MEDS: VITAMIN C 500 MG PO (08:43)
[2023-11-08] MEDS: FLUSH (NSS) 1 FLUSH IV (09:14)
[2023-11-08] MEDS: NORVASC 2.5 MG PO (10:05)
[2023-11-08] MEDS: BICITRA 30 ML PO (10:05)
[2023-11-08 10:07] VITALS: BP 130/90
--- NOTE | 2023-11-08 11:02 | W.PN.HOSP.TC ---
Today's Communication/Plan
-
Dc home today
Assessment / Plan
Assessment / Plan
1. ACS - High risk factors and typical symptoms. Currently chest pain free. Trop was 0.012.
- admit to telemetry
- cycle cardiac enzymes
- prn nitroglycerin for now
- aspirin 324 x 1, then continue aspirin, statin and beta blockade.
- continue Jardiance
- echo in am
- npo in am
- cardiology consulted
11/06
Cardiac cath done came back shows:
1. No obvious obstructive stenoses to explain his ongoing symptoms. Prior LAD stents are widely patent.
2. Apical LAD which is very small in caliber has mildly sluggish flow.
3. High normal LVEDP at 14 mmHg.
Cardiology recommending to continue medical management.
normal echocardiogram.
11/04
added low dose norvasc 2.5
will discharge home today
2. HTN - stable.
- continue lisinopril
3. Acidosis -
CO2 improved to 18
Continue to monitor
- continue sodium bicarb with bicitra pchs
- f/u with outpatient nephrology.
DVT PPX with lovenox sq
Full Code
Anticipated Discharge: Today
Subjective/Interval History
-
Date of Service: November 08, 2023
Patient seen and examined at bedside, no chest pain, Denies shortness of breath, no abdominal pain, no nausea, no vomiting, no diarrhea or constipation.
echo normal.
Objective Data
-
Labs:
Laboratory Results
11/08/23
04:21
WBC 8.4
Hgb 16.2
Hct 46.5
Plt Count 148
Sodium 140
Potassium 4.3
Chloride 112 H
Carbon Dioxide 18 L
BUN 28 H
Creatinine 1.7 H
Glucose 98
Calcium 9.5
Vital Signs:
Vital Signs
Temp Pulse Resp BP Pulse Ox
97.7 F 61 18 130/90 99
11/08/23 07:46 11/08/23 10:07 11/08/23 07:46 11/08/23 10:07 11/08/23 10:46
I&O
11/07/23 11/08/23 11/09/23
06:59 06:59 06:59
Intake Total 550 / 550
Balance 550 / 550
Physical Exam
-
General: Well Developed and No Apparent Distress
HEENT: Normocephalic, Atraumatic and Moist Mucous Membranes
Respiratory: Clear to Auscultation
Cardiac: Regular Rhythm and S1/S2; Negative Murmur, Rub or Gallop
GI: Soft, Nontender, Nondistended and Normal Bowel Sounds; Negative Organomegaly
Rectal: Deferred by Provider
Musculoskeletal: No Clubbing, No Cyanosis and No Edema
Skin: Negative Rash
Neuro: Nonfocal/Grossly Intact
--- NOTE | 2023-11-08 11:06 | W.DCSUMMARY ---
Discharge Summary
Discharge Data
Date of Admission: 11/06/23
Date of Discharge: 11/08/23
-
Pending Results: No
Hospital Course
1. ACS - High risk factors and typical symptoms. Currently chest pain free. Trop was 0.012.
- admit to telemetry
- cycle cardiac enzymes
- prn nitroglycerin for now
- aspirin 324 x 1, then continue aspirin, statin and beta blockade.
- continue Jardiance
- echo in am
- npo in am
- cardiology consulted
11/06
Cardiac cath done came back shows:
1. No obvious obstructive stenoses to explain his ongoing symptoms. Prior LAD stents are widely patent.
2. Apical LAD which is very small in caliber has mildly sluggish flow.
3. High normal LVEDP at 14 mmHg.
Cardiology recommending to continue medical management.
normal echocardiogram.
11/04
added low dose norvasc 2.5
will discharge home today
2. HTN - stable.
- continue lisinopril
3. Acidosis -
CO2 improved to 18
Continue to monitor
- continue sodium bicarb with bicitra pchs
- f/u with outpatient nephrology.
DVT PPX with lovenox sq
Full Code
Discharge Plan
-
Patient Disposition: Home (Routine Discharge)
Discharge Diagnosis/Procedures: Cardiac cath
Diet: Low Cholesterol
Driving Restrictions: No driving for 24 hours
Stand Alone Forms: DC Instructions- Cath/EP Lab
Referrals:
James Teran Jr., MD [Family Provider] -
John Larose, DO [Non-Admitting Privileges] -
Zulema Mcnally PA-C [Specified Professional Personl] - 12/04/23 8:20 am
Additional Discharge Medication Instructions: Increase Atorvastatin to 80mg daily
Prescriptions:
New
amlodipine 2.5 mg Tablet
2.5 mg PO DAILY Qty: 30 0RF
atorvastatin 80 mg tablet
80 mg PO HS Qty: 30 0RF
Continued
buspirone 5 mg tablet
5 mg PO BID
lisinopril 20 mg tablet
20 mg PO DAILY
metoprolol succinate 100 mg tablet extended release 24 hr
100 mg PO BID
therapeutic multivitamin Tablet
1 tab PO HS
aspirin 81 mg tablet,delayed release (DR/EC)
81 mg PO DAILY
zinc sulfate 50 mg zinc (220 mg) Tablet
50 mg PO DAILY
ascorbic acid (vitamin C) [Vitamin C] 500 mg Tablet
500 mg PO DAILY
sodium bicarbonate 650 mg tablet
1,300 mg PO BID
folic acid 1 mg tablet
1 mg PO DAILY
magnesium 250 mg Tablet
250 mg PO HS
topiramate 50 mg tablet
50 mg PO BID
Jardiance 10 mg tablet
10 mg PO DAILY
Discontinued
atorvastatin 40 mg tablet
40 mg PO HS
Discharge Orders:
Discharge Patient (As Directed); Ordered 11/08/23
Ordered By: Flaco Givens
Care Plan Goals
Care Plan Goals:
Problem: Readiness for enhanced knowledge related to diagnosis and treatment plan
Goal: Understand your diagnosis and treatment plan needs, including medications if applicable.
Instructions: Know your diagnosis, underlying causes and treatment plan options, including medications if applicable. Consult with your health care team to learn about your diagnosis and treatment plan, including medications if applicable.
Discharge Date and Time
Print Language: KINYARWANDA
[2023-11-08 11:40] VITALS: BP 119/87
--- NOTE | 2023-11-08 12:39 | PTCARENOTE ---
Patient provided D/C instructions and verbalized understanding of discharge packet. Patient educated on importance of limiting strenuous activity on the right arm and monitoring for signs of bleeding or infection. Patient verbalized understanding.
Full set of vitals take at within four hours of discharge. Patient left with belonging and educational packet as well as discharge instructions. Tele Monitor removed. IV access removed.
--- NOTE | 2023-11-08 14:16 | PTCARENOTE ---
Patient discharged home, escorted off unit by staff via wheelchair. Patient assisted into car by staff and patients mom drove patient home.
== END 2023-11-08 13:44 | disposition home or self-care (01) ==
LOC: SDS 22:07
PROVIDERS: Emergency Medicine; Internal Medicine; Nurse Practitioner Adult Health; CONSULT PHYSICIAN Internal Medicine Cardiovascular Disease; EMERGENCY PHYSICIAN Emergency Medicine; FAMILY PHYSICIAN Internal Medicine
DX: I24.9 Acute ischemic heart disease, unspecified (principal); I25.10 Atherosclerotic heart disease of native coronary artery without angina pectoris; I25.2 Old myocardial infarction; E66.01 Morbid (severe) obesity due to excess calories; Z68.42 Body mass index [BMI] 45.0-49.9, adult; I12.9 Hypertensive chronic kidney disease with stage 1 through stage 4 chronic kidney disease, or unspecified chronic kidney disease; N18.31 Chronic kidney disease, stage 3a; E78.00 Pure hypercholesterolemia, unspecified; R73.03 Prediabetes; E87.20 Acidosis, unspecified; G47.33 Obstructive sleep apnea (adult) (pediatric); I25.5 Ischemic cardiomyopathy; Z86.73 Personal history of transient ischemic attack (TIA), and cerebral infarction without residual deficits; Z87.891 Personal history of nicotine dependence; Z95.5 Presence of coronary angioplasty implant and graft; Z79.82 Long term (current) use of aspirin; Z82.49 Family history of ischemic heart disease and other diseases of the circulatory system
CPT/HCPCS: 71046; 80048; 80053; 80061; 83036; 84484; 85025; 85027; 87070; 93005; 93306; 93458; 96360; 96361; 99152; 99153; 99285; C1894; Q9950; Q9967